=== PATIENT | female | born 1990 | race Caucasian/White ===

== ENCOUNTER 2022-10-19 21:04 | Emergency (ER) | payer OTHER ==
[~2022-10-19] VITALS: Ht 160 cm; Wt 72.7 kg
[2022-10-19 21:38] VITALS: BP 127/80; PULSE 98; RESP 19; TEMP 98.3
== END 2022-10-19 23:57 | disposition left against medical advice (07) ==
LOC: EMS 21:05
DX: R11.10 Vomiting, unspecified (principal); Z53.21 Procedure and treatment not carried out due to patient leaving prior to being seen by health care provider
CPT/HCPCS: 99281; Z7502

== ENCOUNTER 2023-12-25 03:08 | Emergency (ER) | payer MEDICAID ==
[~2023-12-25] VITALS: Ht 167.6 cm; Wt 83.0 kg
[2023-12-25 03:14] VITALS: BP 121/70; PULSE 72; RESP 16; TEMP 98.2; O2SAT 98
== END 2023-12-25 03:59 | disposition left against medical advice (07) ==
LOC: EMS 03:08
DX: Z53.21 Procedure and treatment not carried out due to patient leaving prior to being seen by health care provider (principal)
CPT/HCPCS: 99283; 99406